=== PATIENT | female | born 1980 | race Caucasian/White ===

== ENCOUNTER 2023-07-16 11:20 | Emergency (ER) | payer MEDICARE, OTHER, MEDICAID, SELFPAY ==
--- NOTE | ~2023-07-16 | XR_ITS ---
EXAMINATION: XR chest 1V portable DATE: 07/16/2023 12:10 INDICATION: Chest pain. TECHNIQUE: A single frontal view of the chest was obtained. COMPARISON: Chest 2 views 07/16/2010 FINDINGS: There is no pneumonia, pleural effusion, or pneumothorax. The heart size is normal. IMPRESSION: 1. No acute cardiopulmonary disease. Reviewed, dictated and finalized at location A.
[2023-07-16 11:20] VITALS: BP 105/70; PULSE 65; RESP 18; TEMP 36.8; O2SAT 100
--- NOTE | 2023-07-16 11:26 | ECG_ITS ---
SEE SCANNED COPY FOR CONFIRMED REPORT MTDD
[2023-07-16 11:27] VITALS: PULSE 76
[2023-07-16 11:55] LABS: Basophils Percent Auto 0.4 % (0.2-1.2); Eosinophils Absolute Auto 0.2 K/mm3 (0-0.3); Eosinophils Percent Auto 2.8 % (0-4.4); Hematocrit 39.9 % (37.0-47.0); Hemoglobin 11.9 g/dL (12.0-15.0); Immature Granulocyte Absolute 0.02 K/mm3 (0.00-0.031); Immature Granulocyte Percent A 0.4 % (0-0.5); Lymphocytes Absolute Auto 1.12 K/mm3 (0.9-3.2); Lymphocytes Percent Auto 19.9 % (18.3-44.2); Mean Corpuscular HGB Conc 29.8 g/dl (32-36); Mean Corpuscular Hemoglobin 27.7 pg (26-34); Mean Corpuscular Volume 92.8 fl (80-100); Mean Platelet Volume 10.5 fl (7.4-10.4); Monocytes Absolute Auto 0.7 K/mm3 (0.1-0.6); Monocytes Percent Auto 12.5 % (2.6-8.5); Neutrophils Absolute Auto 3.6 K/mm3 (1.3-6.7); Platelet Count Result 139 k/mm3 (150-375); Red Cell Distribution Width 16.3 % (11.5-14.5); White Blood Count 5.6 K/mm3 (4.5-10.0)
[2023-07-16 11:57] VITALS: O2SAT 100
[2023-07-16 12:03] LABS: Alanine Aminotransferase 12 U/L (6-35); Albumin Level 4.1 g/dL (3.5-5.1); Alkaline Phosphatase 93 U/L (38-126); Anion Gap 8 mmol/L (4-12); Aspartate Amino Transferase 27 U/L (14-36); Bilirubin,Total 1.1 mg/dL (0.2-1.3); Blood Urea Nitrogen 16 mg/dL (7-17); Calcium 8.7 mg/dL (8.4-10.2); Carbon Dioxide 21 mmol/L (22-30); Chloride 109 mmol/L (98-107); Estimated CRCL calculation 80 ml/min; Estimated Glomerular Filt Rate > 60; Glucose 96 mg/dL (65-110); Lipase 38 U/L (23-300); Potassium 3.5 mmol/L (3.4-5.0); Sodium 138 mmol/L (137-145)
[2023-07-16 12:15] LABS: Troponin I < 0.012 ng/mL (0.000-0.034)
[2023-07-16 12:16] LABS: INR 1.1; Partial Thromboplastin Time 24.6 Seconds (22.3-36.8)
[2023-07-16 12:21] LABS: Anisocytosis 1+; Platelet Estimate Decreased (Adequate); Schistocytes None Seen
--- NOTE | 2023-07-16 12:39 | ED.CHESTPAIN ---
HPI - Chest Pain General Chief Complaint: Chest Pain Stated Complaint: CP, ear pain Time Seen by Provider: 07/16/23 11:46 Source: patient Mode of arrival: EMS Limitations: altered mental status History of Present Illness HPI narrative: 43-year-old [facility] report of chest pain of a few months duration as as left ear pain. It is also reported that patient uses IV fentanyl and last use was yesterday. EMS administered 324 mg aspirin EN route by report. Patient is somnolent initial evaluation. She is protecting her airway sluggish to respond. She can answer simple yes and no questions and endorses chest pain, a cough without hemoptysis, left ear pain. She states she has had nausea and vomiting and diarrhea and feels short of breath. Does not know if she has had a fever. Related Data Allergies Allergy/AdvReac Type Severity Reaction Status Date / Time Cephalosporins Allergy Mild Verified 12/03/21 07:44 Penicillins Allergy Mild Verified 12/03/21 07:44 metoclopramide Allergy Unknown HIVES,ITCHI Verified 12/03/21 07:44 NG,AGITATIO N Kiwi Allergy Mild Uncoded 12/03/21 07:44 PMFSH Social History Social History (Updated 07/16/23 @ 20:20 by Violetta Gage MD) Substance use type: opiates Other substance usage details: IV fentanyl Last use: 07/15/23 Exam Narrative: GENERAL: Ill-appearing, thin, somnolent/lethargic though arouses to verbal stimuli. Poor hygiene. HEAD: Normocephalic, atraumatic. EYES: Non injected ENT: Nares clear, no rhinorrhea or epistaxis. NECK: Supple. CHEST: No respiratory distress. HEART: Regular rate and rhythm. Normal s1 and S2 without murmur. Occasional additional beat. ABDOMEN: Soft, nondistended. non tender, no guarding. Not peritoneal. EXTREMITIES:Right leg larger than left with thickened skin. SKIN: Warm, dry. multiple scattered skin lesions/scars across bilateral upper and lower extremities in various stages of healing. NEURO: No focal deficits. Alert but health history limited. Course Vital Signs Vital signs: Vital Signs Temperature 98.3 F 07/16/23 11:20 Pulse Rate 65 07/16/23 11:20 Respiratory Rate 18 05/29/24 11:20 Blood Pressure 105/70 05/29/24 11:20 Pulse Oximetry 100 07/16/23 11:20 Oxygen Delivery Room Air 07/16/23 11:20 Temperature 98.3 F 07/16/23 11:20 Pulse Rate 76 07/16/23 11:27 Respiratory Rate 18 07/16/23 11:20 Blood Pressure 105/70 07/16/23 11:20 Pulse Oximetry 100 07/16/23 11:57 Oxygen Delivery Room Air 07/16/23 11:57 MDM - Chest Pain MDM Narrative Medical decision making narrative: Patient presents via EMS from [facility] with report of chest pain which she has been experiencing for few months. Patient is quite on exam history is limited but she does state that she has chest pain, nausea, vomiting, diarrhea shortness of breath and cough. Patient had reported that she uses IV fentanyl and her last use was yesterday. In the emergency department they are afebrile with vital signs within normal limits. Patient initially evaluated and orders are placed. I am informed by nursing that patient is more alert and is refusing IV access. She would like to leave AMA. While I have concerns and she appears generally unwell, The patient is oriented per nursing staff and has the capacity to make decisions regarding the medical care offered including the refusal of such care. The patient now speaks coherently and exhibits no evidence of having an altered level of consciousness or alcohol or drug intoxication to a point that would impair judgment. She leaves before I had the opportunity to print discharge instructions encouraging her that she could return at any point. Differential Diagnosis Differential diagnosis: Likely unstable angina pectoris, atypical chest pain, st elevation myocardial infarction, chest pain, biliary colic and other (acute viral syndrome, endocar
[2023-07-16 13:14] LABS: Lactic Acid Reflex 0.8 mmol/L (0.7-2.0)
[2023-07-16 13:24] LABS: NT Pro B Type Natriuretic Pept 105 pg/mL (19.9-100)
== END 2023-07-16 13:32 | disposition left against medical advice (07) ==
PROVIDERS: Emergency Provider Student in an Organized Health Care Education/Training Program
DX: R07.9 Chest pain, unspecified (principal); H92.02 Otalgia, left ear; R06.02 Shortness of breath; I49.1 Atrial premature depolarization; I45.10 Unspecified right bundle-branch block; R94.31 Abnormal electrocardiogram [ECG] [EKG]
CPT/HCPCS: 36415; 71045; 80053; 83605; 83690; 83880; 84484; 85025; 85610; 85730; 93005; 99284